=== PATIENT | male | born 1980 | race Caucasian/White ===

== ENCOUNTER 2020-07-17 11:57 | Emergency (ER) | payer SELFPAY ==
[2020-07-17] MEDS ORDERED: Lidocaine 1% (PF) 30 ML VIAL ONE (13:08)
[2020-07-17] MEDS ORDERED: Boostrix 0.5 ML (Tdap) VIAL ONE (13:12)
[2020-07-17] MEDS ORDERED: HYDROcodone/Acetaminophen 10/325 mg Tablet ONE (13:35)
== END 2020-07-17 15:01 | disposition home or self-care (01) ==
LOC: CSHERS 11:57
DX: S68.121A Partial traumatic metacarpophalangeal amputation of left index finger, initial encounter (principal); Z23 Encounter for immunization; W31.2XXA Contact with powered woodworking and forming machines, initial encounter
CPT/HCPCS: 90471; 90715; J2001